=== PATIENT | male | born 1965 | race Caucasian/White ===

== ENCOUNTER 2024-10-28 01:15 | Inpatient (IN) | payer OTHER, SELFPAY ==
[2024-10-27 20:22] VITALS: BP 153/104
[2024-10-27 20:38] LABS: % Basophils 0.3 % (0-2); % Eosinophils 0.2 % (0-6); % Immature Granulocytes 0.8 % (0-0.5); % Lymphocytes 6.5 % (20.5-51.1); % Neutrophils 82.2 % (42.2-75.2); Absolute Basophils 0.1 10^3/uL (0-0.2); Absolute Immature Granulocytes 0.2 10^3/uL (0-0.05); Absolute Lymphocytes 1.2 10^3/uL (1.2-3.4); Absolute Monocytes 1.9 10^3/uL (0.1-0.6); Absolute Neutrophils 15.5 10^3/uL (1.4-6.5); Hematocrit 32.2 % (39.0-52.0); Hemoglobin 11.4 g/dL (13.0-18.0); Mean Corp Hgb Conc. 35.4 g/dL (33.0-37.0); Mean Corpuscular Hgb 33.9 pg (27.0-31.0); Mean Corpuscular Volume 95.8 fL (80.0-94.0); Mean Platelet Volume 9.7 fL (7.4-10.4); Nucleated Red Blood Cells % 0 % (-); Platelet Count 333 10^3/uL (130-400); Red Blood Cell Count 3.36 10^6/uL (4.70-6.10); Red Cell Dist. Width 14.5 % (11.5-14.5); White Blood Cell Count 18.9 10^3/uL (4.8-10.8)
[2024-10-27 20:59] LABS: NT-proBNP 138 pg/ml
[2024-10-27 21:04] LABS: ALT (SGPT) 173 U/L (0-50); AST (SGOT) 688 U/L (17-59); Albumin 3.7 g/dl (3.5-5.0); Alkaline Phosphatase 877 U/L (38-126); Blood Urea Nitrogen 20 mg/dl (9-20); Calcium 9.4 mg/dl (8.4-10.2); Carbon Dioxide 25 mmol/L (22-30); Chloride 99 mmol/L (98-107); Glucose 130 mg/dl (70-99); Lipase 93 U/L (23-300); Potassium 3.9 mmol/L (3.5-5.1); Sodium 135 mmol/L (135-145); Total Bilirubin 5.8 mg/dl (0.2-1.3); Total Protein 6.9 g/dl (6.3-8.2); eGFR > 60.00
--- NOTE | 2024-10-27 21:56 | ED.GENMED ---
History of Present Illness
General
Chief Complaint: Abdominal Pain
Source: patient
Exam Limitations: none
Time Seen by Provider: 10/27/24 21:44
History of Present Illness
History of Present Illness:
This is a 59 year old male that comes in with c/o constipation. States that he went to and was told that he has an obstruction. States that he hasn't really moved his bowel well in the past 2 weeks. States that he has had some diarrhea but not
much. Stats that his abd is distended. States that he also started a week ago with bilateral leg swelling. Denies any fever, chills, chest pain, SOB, abd pain, nausea, vomiting, headache, dizziness, urinary burning.
Past History
Past History
ED Past Medical History: None; Negative Asthma, HTN, Hypercholesterolemia or NIDDM
ED Past Surgical History: None
Social History
Tobacco: Smoker
Alcohol: Daily (Beer 3)
Personal: Single
Living: alone
Review of Systems
Review of Systems
All Other Systems: ROS reviewed and negative except as documented in HPI and ROS
Constitutional: Reports no symptoms; Denies fever or chills
EENT: Reports no symptoms
Respiratory: Reports no symptoms; Denies cough or trouble breathing
Cardiac: Reports no symptoms; Denies chest pain
ABD/GI: Reports constipated and other (abd distension)
: Denies dysuria, frequency or urgency
Musculoskeletal: Reports no symptoms
Skin: Reports no symptoms
Neurological: Reports no symptoms; Denies dizzy or headache
Psychiatric: Reports no symptoms
Phy Exam
General Physical Exam
General Presentation: no apparent distress
General age: appears stated age
General Skin: warm, dry and other (jaundice)
General Habitus: normal
General Mental: alert
General Hydration: appears well hydrated
ENT Exam
ENT Exam: TM's normal, pharynx normal and neck supple
Eye Exam
Eye Exam: EOMI and other (sclera slightly jaundice)
Cardiovascular Exam
Cardiovascular Exam: regular rate/rhythm and normal peripheral pulses
Pulmonary Exam
Pulmonary Exam: lungs clear, no respiratory distress, no rales, chest non tender, no crackles, no rhonchi, no wheezing and no cough
Gastrointestinal Exam
Gastrointestinal Exam: soft, no pulsatile mass, ascites and other (large palpable mass in the RUQ hard to tough, Hypoactive bowel sounds)
Musculoskeletal Exam
Musculoskeletal Exam: full ROM and edema (Pitting edema of the legs up into the thighs +2 lower leg and +1 thighs )
Skin Exam
Skin Exam: warm/dry, no petechia and jaundice
Psychiatric Exam
Psychiatric Exam: normal mood/affect
Course
Orders/Labs/Results
Orders:
Orders
10/27/24 20:32
BNP [NT-proBNP] Urgent
Complete Blood Count/With Diff Urgent
Comprehensive Metabolic Panel Urgent
Direct Bilirubin Urgent
Comment: ADD ON
Lipase Urgent
10/27/24 21:55
CT Abd/pelvis W Iv Cont Urgent
Comment:
Reason For Exam: rIGHT UPPER ABD MASS, jAUNDICE
10/27/24 21:56
0.9% Sodium Chloride 250 ml [Nss] 250 ml IV BOLUS
10/27/24 22:03
Add On- LAB Urgent
Tests Added?: Direct clifton
10/27/24 22:32
Lactic Acid Urgent
PTT Urgent
Prothrombin Time Urgent
Abnormal Lab Results
10/27/24 10/27/24
20:32 22:32
WBC 18.9 H 10^3/uL
(4.8-10.8)
RBC 3.36 L 10^6/uL
(4.70-6.10)
Hgb 11.4 L g/dL
(13.0-18.0)
Hct 32.2 L %
(39.0-52.0)
MCV 95.8 H fL
(80.0-94.0)
MCH 33.9 H pg
(27.0-31.0)
Abs Immat Gran (auto) 0.2 H 10^3/uL
(0-0.05)
Absolute Neuts (auto) 15.5 H 10^3/uL
(1.4-6.5)
Absolute Monos (auto) 1.9 H 10^3/uL
(0.1-0.6)
Immature Gran % 0.8 H %
(0-0.5)
Neutrophils % 82.2 H %
(42.2-75.2)
Lymphocytes % 6.5 L %
(20.5-51.1)
Monocytes % 10.0 H %
(1.7-9.3)
Glucose 130 H mg/dl
(70-99)
Lactic Acid 2.1 H mmol/L
(0.7-2.0)
Total Bilirubin 5.8 H mg/dl
(0.2-1.3)
Direct Bilirubin 4.5 H mg/dl
(0.0-0.4)
AST 688 H* U/L
(17-59)
ALT 173 H U/L
(0-50)
Alkaline Phosphatase 877 H U/L
(38-126)
10/27/24 20:32
10/27/24 20:32
Leukocytosis, H/H slightly low. Anemia, hyperglycemia. Total clifton elevation. AST/ALT elevation. Alk phos elevation lipase normal at 93, Pro-BNP 138, Direct clifton elevated at 4.5, PT 14.3 with INR 1.08, PTT 28.0, Lactic acid 2.1,
Vital Signs
Initial and Last Documented VS:
Initial Vital Signs
Temp Pulse Resp BP Pulse Ox
98.5 F 123 18 153/104 98
10/27/24 20:22 10/27/24 20:22 10/27/24 20:22 10/27/24 20:22 10/27/24 20:22
Last Documented Vital Signs
Temp Pulse Resp BP Pulse Ox
98.5 F 123 18 153/104 98
10/27/24 20:22 10/27/24 20:22 10/27/24 20:22 10/27/24 20:22 10/27/24 20:22
MDM/Problems Addressed
Differential Diagnosis Includes:
cancer of the liver, gallbladder disease
MDM/Problems Addressed:
This is a 59 year old male that comes in with c/o constipation. States that he hasn't really moved his bowel in 2-3 weeks but only some liquid. States that his abd is distended. Patient went to and was sent to the ER
Will check labs, CT scan ab/pelvis, Explained to patient that his liver functions are abnormal. Patient will be admitted. Will get CT first.
Back into see patient. Explained that his CT shows that he has liver cancer with metastasis into the pelvis and involving the rectum. Patient will be admitted for further evaluation. Hospitalist notified.
Chronic conditions affecting care:
NA
Acute Exacerbation and/or Progression of Chronic Illness:
NA
*Radiology
Radiology exam reviewed: radiology read reviewed (CT- extensive metastases throughout the liver. Moderate intrahepatic biliary ductal dilation. Tumor thrombus versus band thrombus within the intrahepatic IVC. Metastatic necrotic estela conglomerate
seen interspersed between the liver and pancreas. Pelvic mass measuring 5,5 x 5,4cm, most likely ), all reviewed NAD by ED Provider (CT cont-represending a peritoneal metastasis, with serosal invasion of the adjacent rectum. A 2.7 X 1.9cm right
epipericardial metastasis is also seen. Mural thickening of the bladder, suspicious for cystitis. Mild anasarca. Trace scattered ascites. Additional findings: Dependent atelectasis in the) and other (CT cont-tight lower lobe, DJD, DISH. vascular
Calcifications including coronary artery calcification. DJD, Probable left renal cystic focus. )
*Pulse Oximetry
Patient hypoxic: no
*EKG
Interpreted by ED Provider?: NA
Rate: EKG- N/A
*Shape Hand Interpretation
Rate: Shape Hand- N/A
*Critical Care Note
Total Time (30-74mins, 75-104mins- exclusive of procedures): Not Applicable
ED Attending Note
-
Portions of this chart may have been created with voice recognition software.� Occasional wrong word or��sound alike� substitutions may have occurred due to the inherent limitations of voice recognition software.
Discharge Plan
Departure
Patient Disposition: Admit
Date of Disposition: 10/27/24
Time of Disposition: 23:45
Admit to: Med/Surg
Presentation/result/management discussed w/ accepting MD/DO: Hospitalist
Patient with high blood pressure during this ER visit?: Yes
Condition: Good
Covid-19: Not Applicable
Discharge Problem:
Jaundice, Elevated liver enzymes, Bilateral edema of lower extremity, Metastatic cancer to liver
Prescriptions:
No Action
acetaminophen [Tylenol Extra Strength] 500 mg Tablet
500 mg PO Q6HPRN PRN (Reason: mild pain)
ibuprofen 200 mg Tablet
200 mg PO Q6HPRN PRN (Reason: mild pain)
Referrals:
NONE,* [Family Provider] -
Interventions
Interventions:
*Risk Screen - Suicide Last Done: 10/27/24 20:22
*General Assessment Last Done: 10/27/24 20:22
*Neglect/Abuse Screening Last Done: 10/27/24 20:22
*ED COVID-19 Vaccine History Last Done: 10/27/24 20:22
Discharge Date and Time
Print Language: PASHTO
[2024-10-27 22:35] VITALS: BP 155/72
[2024-10-27] MEDS: NSS 250 IV (22:38)
[2024-10-27 22:49] LABS: INR 1.08; PT 14.3 Sec (11.4-14.6)
[2024-10-27 22:50] LABS: Direct Bilirubin 4.5 mg/dl (0.0-0.4)
[2024-10-27 22:55] LABS: Lactic Acid 2.1 mmol/L (0.7-2.0)
[2024-10-28 00:01] VITALS: BP 139/80
[2024-10-28 00:02] VITALS: BMI 29.2
--- NOTE | 2024-10-28 00:45 | HPS.HSE ---
Family Physician
-
Family Physician: * NONE
Chief Complaint
-
Abdominal bloating
History of Present Illness
This is a 59-year-old who denies any significant past medical history presenting to the emergency department with concern for abdominal bloating.
Patient reports that for a few weeks now he has been having abdominal bloating and some constipation. He does have regular bowel movements and passes gas. Reports bowel movements are small. He denies jose pain. He denies any nausea or vomiting.
Denies any fevers or chills. He denies back pain, flank pain, dysuria or hematuria. Otherwise sore icteric sclera the patient denies any noticeable changes in his eyes or skin. He does drink alcohol daily about 3 beers. He denies any prior
history of blood transfusion, IV injection drug use or known hepatitis.
Family history notable for throat cancer in mother who was a smoker but otherwise negative.
In the emergency department he was afebrile blood pressure 130/80 with a pulse of 120, oxygen saturation was normal on room air.
His labs are notable for total bilirubin of 5.8 with direct bilirubin of 4.5, AST of 688 ALT 170 and alk phos of over 800. Electrolytes were unremarkable, BUN/creatinine were normal. He had leukocytosis to 18,000 with rest of the CBC unremarkable.
A CT scan of the abdomen pelvis shows extensive metastasis throughout the liver, moderate intrahepatic biliary ductal dilation, there is tumor or bland thrombus within the intrahepatic IVC. Metastatic nodes seen in the space between the liver and
pancreas. There is a pelvic mass of about 5.5 cm representing peritoneal metastasis, there is also a 2.7 x 2 epicardial metastasis. There is trace scattered ascites and mild anasarca.
Medical History
Past Medical History
Past Medical History: Reports None
Past Surgical History: Reports None
Social History
Tobacco: Former Smoker
Alcohol: Daily (3 beers)
Drug: None
Personal: Single
Living: Alone
Employment: Employed
Family History
Family History: Not pertinent
Allergies / Home Medications
Allergies reflects when Allergies were last updated in [facility].
Home Medications with original date entered in [facility]
Allergy/Medication List:
Allergies
Allergy/AdvReac Type Severity Reaction Status Date / Time
No Known Allergies Allergy Unverified 10/27/24 20:24
Home Medications
acetaminophen 500 mg tablet (Tylenol Extra Strength) 500 mg PO Q6HPRN PRN mild pain 10/27/24
ibuprofen 200 mg tablet 200 mg PO Q6HPRN PRN mild pain 10/27/24
Review of Systems
-
History Source: Patient
Constitutional: Reports No Symptoms
EENT: Reports No Symptoms
Respiratory: Reports No Symptoms
Cardiac: Reports No Symptoms
Abdomen/GI: Reports Abdominal Pain
: Reports No Symptoms
Musculoskeletal: Reports No Symptoms
Skin: Reports No Symptoms
Neurological: Reports No Symptoms
Endocrine: Reports No Symptoms
Hematologic/Lymphatic: Reports No Symptoms
Psych: Reports No Symptoms
Physical Exam
Vital Signs
Vital Signs
Temp Pulse Resp BP Pulse Ox
98.5 F 123 18 139/80 98
10/27/24 20:22 10/27/24 20:22 10/27/24 20:22 10/28/24 00:01 10/28/24 00:04
Physical Exam
General: Well Developed, Well Nourished, No Apparent Distress and Comfortable
HEENT: NormoCephalic, Moist mucous membranes, Atraumatic and PERRLA (icteric sclera)
Respiratory: Clear
Cardiac: S1/S2 and Regular Rhythm
Breast: Deferred by me
GI: Non Tender and Non Distended (firm)
Rectal: Deferred by Provider
Genito-urinary: Deferred by me
Musculoskeletal: No Clubbing, No Cyanosis, Edema, Left Lower Extremity (2+) and Edema, Right Lower Extremity (2+ edema)
Skin: Warm and Other (jaundice)
Neuro: AO x 3 and Nonfocal/grossly intact
Hematologic/Lymphatic: No Lymphadenopathy
Psych: Calm and Intact Judgment/Insight
Laboratory Results
-
10/27/24 20:32
10/27/24 20:32
Laboratory Results
PT 14.3 Sec (11.4-14.6) 10/27/24:32
INR 1.08 10/27/24:32
APTT 28.0 Sec (23.4-35.0) 10/27/24:
Lactic Acid 2.1 mmol/L (0.7-2.0) H 10/27/24:
Total Bilirubin 5.8 mg/dl (0.2-1.3) H 10/27/24:
AST 688 U/L (17-59) H* 10/27/24:
ALT 173 U/L (0-50) H 10/27/24 20:32
Alkaline Phosphatase 877 U/L (38-126) H 10/27/24 20:
Lipase 93 U/L (23-300) 10/27/24 20:32
Data Reviewed
-
CT Scan: Report Reviewed by me
Lab Data: Labs Reviewed by me
Old Records: Reviewed
Impression/Plan
-
IMPRESSION:
This is a 59-year-old with no significant past medical history presented with abdominal bloating and found to have elevated LFTs and bilirubin. Ultimately had a CT of the abdomen pelvis which showed numerous liver lesions concerning for primary
liver malignancy or metastatic disease. There is mets to the regional lymph nodes as well as peritoneal cavity. Moderate intrahepatic ductal dilatation. No intestinal obstruction.
PLAN:
1. Liver Mass with metastatic disease - Primary versus metastic liver cancer. Jaundice and anasarca but otherwise well appearing.
- admit to med/surg
- liquid diet for now
- check afp, ca19-9 and cea
- further distant imaging per Onc
- possible MRI in am for diagnostic purposes
- GI consult
- Oncology consult
2. 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 No ascites. Likely LE edema secondary to the thrombus.
- check clifton LE dopplers
- if bland thrombus, given degree of edema that is secondary to thrombus will likely need anticoagulation rather than diuresis
- Oncology consulted, holding ac pending their review
3. Bilateral swelling
- suspect from ivc obstruction, dopplers as above
- no ascites, bnp negative
4. Leukocytosis
- no signs of acute infection or pain
- monitor for now
DVT PPX - lovenox sq for now
Code status - full code
[2024-10-28 02:19] VITALS: BP 138/82
[2024-10-28 06:47] LABS: Hematocrit 30.6 % (39.0-52.0); Hemoglobin 10.5 g/dL (13.0-18.0); Mean Corp Hgb Conc. 34.3 g/dL (33.0-37.0); Mean Corpuscular Hgb 33.4 pg (27.0-31.0); Mean Corpuscular Volume 97.5 fL (80.0-94.0); Mean Platelet Volume 10.3 fL (7.4-10.4); Platelet Count 320 10^3/uL (130-400); Red Blood Cell Count 3.14 10^6/uL (4.70-6.10); Red Cell Dist. Width 14.6 % (11.5-14.5); White Blood Cell Count 16.7 10^3/uL (4.8-10.8)
[2024-10-28 07:00] LABS: Ammonia < 9 umol/L (9-30)
[2024-10-28 07:12] LABS: Blood Urea Nitrogen 22 mg/dl (9-20); Calcium 9.3 mg/dl (8.4-10.2); Carbon Dioxide 27 mmol/L (22-30); Chloride 99 mmol/L (98-107); Estimated Creatinine Clearance 109 ml/min; Glucose 121 mg/dl (70-99); Potassium 4.1 mmol/L (3.5-5.1); Sodium 134 mmol/L (135-145); eGFR > 60.00
--- NOTE | 2024-10-28 07:37 | CON.ONC ---
Impression
Impression
Widespread metastatic disease (liver, peritoneum)
Jaundice
Plan
Plan
Suspect metastatic dz from probable GI malignancy - suspect colon.
GI consult. Prob needs colonoscopy based on symptoms and suspected primary site.
Await CEA, CA 19/9.
CT chest to elevate for thoracic primary (smoker).
IR biopsy probably of liver mets. Will defer to IR.
Office aware he needs follow up ~ 1 week to review path and discuss Tx.
Good PS.
Patient History
History of Present Illness
Family Physician: * NONE
CC: /\\ in bowel habits
HPI: 59-year-old w/o any known PMH, does not follow with a PCP. Never gets cancer screening presents with a /\\ in bowel habits since Day weekend worse the past 2 weeks. He states he is here because his bowels are 'backed up' with abdominal
bloating and constipation. Initially he noticed a change in bowel movement frequency. Prior baseline was a daily normal BM. Over the past 3-4 months, noticed bowels thinner and even liquid, less frequently than daily, occasional blood noted past
month. Now, for the past 2 weeks, he has been having abdominal bloating and constipation. Denies abdominal pain, nausea or vomiting, fevers or chills. Noted to be jaundiced with bilirubin of 5.8. A CT scan of the abdomen pelvis shows (prelim
nighthawk reading) extensive metastasis throughout the liver, moderate intrahepatic biliary ductal dilation, there is tumor or bland thrombus within the intrahepatic IVC. Metastatic nodes seen in the space between the liver and pancreas. There is
a pelvic mass of about 5.5 cm representing peritoneal metastasis, there is also a 2.7 x 2 epicardial metastasis.
Consulted for further management. GI consulted also and is pending.
Past-Medical/Surgical History
PMH: None
PSH: None
SH:
Tobacco: Light Smoker 2-3 cigs/day
Alcohol: Daily (3 beers)
Drug: None
Personal: Single
Living: Alone
Employment: Employed - works for [employer])
FH: throat cancer in mother who was a smoker Dx age 60's. She is cured and alive age 90
Patient Medication
�Medication �Instructions �Recorded �Confirmed �Last Taken �Type
acetaminophen 500 mg tablet 500 mg PO Q6HPRN PRN mild pain 10/27/24 10/27/24 Unknown History
(Tylenol Extra Strength)
ibuprofen 200 mg tablet 200 mg PO Q6HPRN PRN mild pain 10/27/24 10/27/24 Unknown History
Active Medications
Generic Name Dose Route Start Last Admin
Trade Name Freq PRN Reason Stop Dose Admin
Acetaminophen 650 mg 10/28/24 02:33
Acetaminophen 325 Mg Tablet PO 11/25/24 02:32
Q4HPRN PRN
mild pain/MALONE/temp> 100.4F
Bisacodyl 10 mg 10/28/24 02:33
Bisacodyl 10 Mg Rectal Suppository RECTAL 11/25/24 02:32
[id number] PRN
constipation
Enoxaparin Sodium 40 mg 10/28/24 18:00
Enoxaparin Sodium 40 Mg/0.4 Ml Syringe SC 11/25/24 17:59
QPM AZUL
Hydromorphone HCl 0.5 mg 10/28/24 02:33
Hydromorphone 0.5 Mg/0.5 Ml Syringe IV 11/11/24 02:32
Q4HPRN PRN
severe pain
Ondansetron HCl 4 mg 10/28/24 02:33
Ondansetron 4 Mg/2 Ml Vial IV 11/25/24 02:32
Q6HPRN PRN
nausea and vomiting
Oxycodone HCl 5 mg 10/28/24 02:33
Oxycodone 5 Mg Regular Release Tablet PO 11/11/24 02:32
Q4HPRN PRN
moderate pain
Polyethylene Glycol 17 grams 10/28/24 02:33
Polyethylene Glycol Powder 17 Grams Packet PO 11/25/24 02:32
DAILYPRN PRN
constipation
Senna/Docusate Sodium 1 tablet 10/28/24 02:33
Docusate W/Senna (Doris-Colace) Tablet PO 11/25/24 02:32
BIDPRN PRN
constipation
Sodium Chloride 0 flush 10/28/24 03:00
Sodium Chloride 0.9% (Flush) Syringe IV 11/25/24 02:59
PER PROTOCOL AZUL
Physical Exam
-
PS - 1
General: Well Developed, Well Nourished, No Apparent Distress and Comfortable
HEENT: Jaundice
Cardiology: S1 and S2
Pulmonary: Clear
GI: Soft, Distended and Hepatomegaly
Extremities: Edema (1-2+ LE edema B/L)
Neurology: Non Focal
Psych: Calm
Labs
Lab Results
WBC 16.7 10^3/uL (4.8-10.8) H 10/28/24 06:19
RBC 3.14 10^6/uL (4.70-6.10) L 10/28/24 06:19
Hgb 10.5 g/dL (13.0-18.0) L 10/28/24 06:19
Hct 30.6 % (39.0-52.0) L 10/28/24 06:19
MCV 97.5 fL (80.0-94.0) H 10/28/24 06:19
MCH 33.4 pg (27.0-31.0) H 10/28/24 06:19
MCHC 34.3 g/dL (33.0-37.0) 10/28/24 06:19
RDW 14.6 % (11.5-14.5) H 10/28/24 06:19
Plt Count 320 10^3/uL (130-400) 10/28/24 06:19
MPV 10.3 fL (7.4-10.4) 10/28/24 06:19
Abs Immat Gran (auto) 0.2 10^3/uL (0-0.05) H 10/27/24 20:32
Absolute Neuts (auto) 15.5 10^3/uL (1.4-6.5) H 10/27/24 20:32
Absolute Lymphs (auto) 1.2 10^3/uL (1.2-3.4) 10/27/24 20:32
Absolute Monos (auto) 1.9 10^3/uL (0.1-0.6) H 10/27/24 20:32
Absolute Eos (auto) 0.0 10^3/uL (0-0.7) 10/27/24 20:32
Absolute Basos (auto) 0.1 10^3/uL (0-0.2) 10/27/24 20:32
Immature Gran % 0.8 % (0-0.5) H 10/27/24 20:32
Neutrophils % 82.2 % (42.2-75.2) H 10/27/24 20:32
Lymphocytes % 6.5 % (20.5-51.1) L 10/27/24 20:32
Monocytes % 10.0 % (1.7-9.3) H 10/27/24 20:32
Eosinophils % 0.2 % (0-6) 10/27/24 20:32
Basophils % 0.3 % (0-2) 10/27/24 20:32
Creatinine 0.7 mg/dL (0.7-1.3) 10/28/24 06:19
Vital Signs
Vital Signs
Temp Pulse Resp BP Pulse Ox
98.5 F 77 18 138/82 97
10/27/24 20:22 10/28/24 02:22 10/27/24 20:22 10/28/24 02:19 10/28/24 04:15
[2024-10-28 08:22] LABS: CEA 1380 ng/ml
[2024-10-28 09:01] VITALS: BP 143/85
--- NOTE | 2024-10-28 10:04 | CON.GI ---
Addendum entered and electronically signed by Isabelle Padilla MD 10/28/24 18:18:
I saw and examined the patient.
The COMMUNITY OUTREACH COORDINATOR or PA's note was reviewed and I agree with the note.
Comment: 59-year-old male with no known past medical history as he never sought medical care presenting with complaints of increasing constipation which got severe in the last couple of weeks, abdominal distention and lower extremity edema. No
nausea, vomiting, heartburn or trouble swallowing. Never had a colonoscopy. In the emergency room, he was noted to have leukocytosis with white count of 16.7, macrocytic anemia with a hemoglobin of 10.5, CT scan of the abdomen pelvis showing
extensive metastatic disease throughout the liver and filling defect in the intravenous IVC suggesting a thrombus, most likely tumor thrombus and also noted is a mass within the pelvis superior to the rectosigmoid junction, either a primary lesion
or a peritoneal metastatic lesion. CT chest showed enlarged pericardial lymph adenopathy suggesting possible neoplastic disease.
-Abnormal CT with tumor burden in the liver and also possible rectosigmoid lesion, primary versus peritoneal metastatic disease
Plan at this time is IR guided biopsy of the liver lesions
Eventual colonoscopy to evaluate the rectosigmoid lesion, will need extended prep. Will start MiraLAX 1 capful daily.
-Elevated LFTs, mainly total bilirubin with AST, ALT and alkaline phosphatase being elevated as well.
Likely related to tumor burden as well.
There is no evidence of biliary ductal dilation noted on CT abdomen pelvis but if LFTs continue to rise, agree with MRI/MRCP at that time.
Will follow-up on the above testing.
Original Note:
Consultation
-
Date/Time Consultation Requested: 10/28/24 0230
Date/Time Consultation Performed: 10/28/24 1000
Requesting Provider: Lan Enamorado MD
Performing Provider: SARA Yang, Isabelle Padilla MD
Reason for Consultation: abnormal CT
Medical History
Chief Complaint / HPI
Chief Complaint: abdominal bloating
History of Present Illness:
Pt is a 59yo without medical problems but admits to no medical care in years. He now is noted onset of bloating and constipation with symptoms for last few months. He admits to initially had change in bowel habit with occasional rectal bleeding
then some bloating/distention and recently noted LE edema. On admission extensive metastatic liver disease with concern for tumor thrombus within intrahepatic IVC, periportal lymphadenopathy, concern for mass superior to rectosigmoid junction-
peritoneal mets vs neoplasm from colon without obstruction or free air and bladder thickening. Labs on admission with concern for WBC 18,900, hbg 11.4, platelets 333, na 134, bili 5.8, D bili 4.5, AST 688, alt 173, alk phos 877. CEA 1380 with AFP
and 19-9 pending.
Pt otherwise denies odynophagia, dysphagia, GERD, nausea, vomiting, or black stools. No chronic med but some daily vitamins. No hx EGD/colon in past.
Past Medical History
Past Medical History: Other (no known medical problems without medical care for years )
Social History
Tobacco: Non-Smoker
Alcohol: Daily (2-3 beers )
Drug: None
Living: With Family
Employment: Employed
Family History
Family History: Other (mother with throat CA)
Allergies / Home Medications
Allergy/AdvReac Type Severity Reaction Status Date / Time
No Known Allergies Allergy Unverified 10/27/24 20:24
�Medication �Instructions �Recorded
acetaminophen 500 mg tablet 500 mg PO Q6HPRN PRN mild pain 10/27/24
(Tylenol Extra Strength)
ibuprofen 200 mg tablet 200 mg PO Q6HPRN PRN mild pain 10/27/24
Review of Systems
-
History Source: Patient
Constitutional: Reports Weight Gain
EENT: Reports No Symptoms
Respiratory: Reports No Symptoms
Cardiac: Reports No Symptoms
Abdomen/GI: Reports Abdominal Pain (bloating ), Constipated and Bloody Stools
: Reports No Symptoms
Musculoskeletal: Reports Edema
Skin: Reports No Symptoms
Neurological: Reports Weakness
Endocrine: Reports No Symptoms
Hematologic/Lymphatic: Reports Bleeding
Vital Signs
Temp Pulse Resp BP Pulse Ox
98.7 F 99 18 143/85 97
10/28/24 09:01 10/28/24 09:01 10/28/24 09:01 10/28/24 09:01 10/28/24 09:01
Physical Exam
Exam
General: Well Developed, Well Nourished and No Apparent Distress
HEENT: Normocephalic and Other (jaundice )
Respiratory: Clear
Cardiac: Regular Rhythm and Peripheral Edema (b/l + 3 edema )
GI: Soft, Distended and Other (palpable tumor RUQ)
Musculoskeletal: No Clubbing and No Cyanosis
Skin: Warm and Dry
Neuro: Awake, Alert and AO x 3
Psych: Calm
Results
WBC 16.7 10^3/uL (4.8-10.8) H 10/28/24 06:19
Hgb 10.5 g/dL (13.0-18.0) L 10/28/24 06:19
Hct 30.6 % (39.0-52.0) L 10/28/24 06:19
MCV 97.5 fL (80.0-94.0) H 10/28/24 06:19
Plt Count 320 10^3/uL (130-400) 10/28/24 06:19
Absolute Neuts (auto) 15.5 10^3/uL (1.4-6.5) H 10/27/24 20:32
PT 14.3 Sec (11.4-14.6) 10/27/24 22:32
INR 1.08 10/27/24 22:32
APTT 28.0 Sec (23.4-35.0) 10/27/24 22:32
Sodium 134 mmol/L (135-145) L 10/28/24 06:19
Potassium 4.1 mmol/L (3.5-5.1) 10/28/24 06:19
Chloride 99 mmol/L (98-107) 10/28/24 06:19
Carbon Dioxide 27 mmol/L (22-30) 10/28/24 06:19
BUN 22 mg/dl (9-20) H 10/28/24 06:19
Creatinine 0.7 mg/dL (0.7-1.3) 10/28/24 06:19
Calcium 9.3 mg/dl (8.4-10.2) 10/28/24 06:19
Total Bilirubin 5.8 mg/dl (0.2-1.3) H 10/27/24 20:32
AST 688 U/L (17-59) H* 10/27/24 20:32
ALT 173 U/L (0-50) H 10/27/24 20:32
Alkaline Phosphatase 877 U/L (38-126) H 10/27/24 20:32
Lipase 93 U/L (23-300) 10/27/24 20:32
Diagnostic Image Results:
10/27/24 CT Abd/pelvis W Iv Cont
Extensive metastatic disease throughout the liver. Filling defect within the intrahepatic IVC, which is likely thrombus, most likely tumor thrombus.
Periportal lymphadenopathy.
There is a mass within the pelvis, superior to the rectosigmoid junction. This most likely represents a peritoneal metastasis. Differential consideration of primary neoplasm arising from the colon extending superiorly colonic lumen. There is no
evidence for bowel obstruction or free intraperitoneal air.
Diffuse subcutaneous edema.
Thickening of the urinary bladder wall with stranding of the adjacent fat, and please correlate with any signs or symptoms that would suggest cystitis. There is a small amount of free fluid within the pelvis.
See above narrative for additional findings.
10/28/24 US LE
No sonographic evidence for lower extremity venous thrombosis.
Prior GI Procedures:
EGD: none
Colonoscopy: none
Assessment / Plan
-
Pt is a 59yo without medical problems but admits to no medical care in years. He now is noted onset of bloating and constipation with symptoms for last few months. He admits to initially had change in bowel habit with occasional rectal bleeding
then some bloating/distention and recently noted LE edema. On admission extensive metastatic liver disease with concern for tumor thrombus within intrahepatic IVC, periportal lymphadenopathy, concern for mass superior to rectosigmoid junction-
peritoneal mets vs neoplasm from colon without obstruction or free air and bladder thickening. Labs on admission with concern for WBC 18,900, hbg 11.4, platelets 333, na 134, bili 5.8, D bili 4.5, AST 688, alt 173, alk phos 877. CEA 1380 with AFP
and 19-9 pending.
-abnormal CT with concern for metastatic CA with noted liver lesions, rectosigmoid mass mets vs primary colon mass
-likely thrombus with extensive filling defect within intrahepatic IVC
-elevated CEA 1380
-leukocytosis
-LE edema with neg US doppler
-abdominal distention with recent change in bowel pattern and occasional rectal bleeding
-daily ETOH use
PLAN:
Etiology of symptoms with concern for metastatic CA -- primary to be determined - colon, liver vs other
plan for liver biopsy and CT chest next
reviewed with Dr. Pardo appreciate input, will likely need colonoscopy to exclude colon mass- may need prolonged prep with recent bloating, constipation
LFT elevation -related to mets vs obstructive, thrombus related vs other-- per CT CBD does not appear dilated but some intrahepatic biliary dilation
-- will review with Dr. Padilla need for MRI to eval for obstructive process if continued to rise
INR/platelet/albumin normal likely excludes underlying liver disease with hx daily ETOH use
will follow
-
-
Thank you for consultation and allowing me to participate in the patient's care. Please call the nutrition coordinator GI physician during the after hours with any questions or concerns.
--- NOTE | 2024-10-28 15:37 | W.PN.HOSP.TC ---
Today's Communication/Plan
-
IR for liver biopsy
Plan to speak to IR about possible interventions for IVC
Plan for colonoscopy here
Follow-up CT chest
Follow-up tumor markers
Assessment / Plan
Assessment / Plan
#Liver mass
#Metastatic cancer of unclear origin
#Elevated LFTs with jaundice -- AST/ALT > 3
-Differentials include primary liver, colorectal, lung, elsewhere; CEA elevated to 1400
-Significantly elevated LFTs in cholestatic > hepatocellular pattern
-CT A/P with significant liver mass the origin of which is unclear
-No known history of HBV/cirrhosis; AFP, CA 19-9, send on arrival
-GI and oncology consulted; recommend possible colonoscopy, CT chest
Plan
-IR consult for liver biopsy
-Follow-up serological markers
-Follow-up CT chest to assess for lung masses
-Plan for colonoscopy while here
-Avoid hepatotoxins, trend LFTs
#IVC obstruction
#Bilateral lower extremity edema
-Seen on CT A/P, suspect this is tumor >thrombus causing the obstruction
-Plan to speak to IR about possible intervention
-Oncology following, as is interventional radiology
-Would not expect this to significantly improve with diuretics
#Irregular heart rhythm
-Noted per exam, difficult to differentiate PVCs from AF/AFL
-Does have significant systemic disease, would not be surprised if this is AF
-Ordered ECG to further assess
-May require rate control on anticoagulation
#Leukocytosis
-Likely reactive process secondary to IVC obstruction and metastatic
-Continue to trend CBC and temperature curve
DVT prophylaxis: Lovenox
Diet: Full liquids
CODE STATUS: Full code
Anticipated Discharge: > 48 hours
Subjective/Interval History
-
Date of Service: October 28, 2024
Seen and examined at the bedside. No acute events reported overnight. AFVSS as of this morning
States his symptoms started while ago with intermittent constipation that worsened with time. Progressed to near obstipation. Subsequently developed yellow skin and edema in the legs which prompted him to come to the hospital. States he has not
seen a doctor in over 20 years
Denies any acute complaints
Objective Data
-
Labs:
Laboratory Results
10/28/24
06:19
WBC 16.7 H
Hgb 10.5 L
Hct 30.6 L
Plt Count 320
Sodium 134 L
Potassium 4.1
Chloride 99
Carbon Dioxide 27
BUN 22 H
Creatinine 0.7
Glucose 121 H
Calcium 9.3
Vital Signs:
Vital Signs
Temp Pulse Resp BP Pulse Ox
98.7 F 99 18 143/85 97
10/28/24 09:01 10/28/24 09:01 10/28/24 09:01 10/28/24 09:01 10/28/24 09:01
Review of Systems
-
History Source: Patient
All other systems: Reviewed and negative
Physical Exam
-
General: Well Developed, Well Nourished, No Apparent Distress and Comfortable
HEENT: Normocephalic, Atraumatic, Moist Mucous Membranes and Other (Icteric sclera)
Respiratory: Clear to Auscultation and Non Labored Respirations
Cardiac: S1/S2 and Irregular Rhythm; Negative Murmur, Rub or Gallop
GI: Soft, Nontender, Nondistended, Normal Bowel Sounds and Organomegaly (RUQ)
Musculoskeletal: No Clubbing, No Cyanosis and Other (3+ pitting edema of lower extremity)
Skin: Warm, Dry and Jaundice; Negative Rash
Neuro: AO x 3 and Nonfocal/Grossly Intact; Negative Tremors
Psych: Calm
Data Reviewed
-
Labs: Labs Reviewed by me, Discussed with Physician (Oncology) and Discussed with Patient
[2024-10-28 16:40] VITALS: BP 132/84
[2024-10-28] MEDS: LOVENOX 40 MG SC (17:53)
--- NOTE | 2024-10-28 21:28 | PTCARENOTE ---
Pt received from ED to [facility]-2. Pt oriented to room and call campbell.
[2024-10-28 21:40] VITALS: BP 159/93; BMI 30.2
[2024-10-29] VITALS (9 sets, daily range): BP systolic 25–152; BP diastolic 75–91; BMI 30.2
[2024-10-29 09:12] LABS: % Basophils 0.2 % (0-2); % Eosinophils 0.4 % (0-6); % Lymphocytes 6.2 % (20.5-51.1); % Monocytes 11.8 % (1.7-9.3); % Neutrophils 80.4 % (42.2-75.2); Absolute Eosinophils 0.1 10^3/uL (0-0.7); Absolute Immature Granulocytes 0.1 10^3/uL (0-0.05); Absolute Lymphocytes 0.8 10^3/uL (1.2-3.4); Absolute Monocytes 1.6 10^3/uL (0.1-0.6); Absolute Neutrophils 10.7 10^3/uL (1.4-6.5); Hematocrit 29.5 % (39.0-52.0); Hemoglobin 10.3 g/dL (13.0-18.0); Mean Corp Hgb Conc. 34.9 g/dL (33.0-37.0); Mean Corpuscular Volume 94.6 fL (80.0-94.0); Mean Platelet Volume 10.5 fL (7.4-10.4); Nucleated Red Blood Cells % 0 % (-); Platelet Count 303 10^3/uL (130-400); Red Blood Cell Count 3.12 10^6/uL (4.70-6.10); Red Cell Dist. Width 15.3 % (11.5-14.5); White Blood Cell Count 13.3 10^3/uL (4.8-10.8)
[2024-10-29 09:20] LABS: INR 1.14; PT 15.1 Sec (11.4-14.6)
[2024-10-29 11:12] LABS: ALT (SGPT) 178 U/L (0-50); AST (SGOT) 737 U/L (17-59); Albumin 3.4 g/dl (3.5-5.0); Alkaline Phosphatase 785 U/L (38-126); Blood Urea Nitrogen 20 mg/dl (9-20); Calcium 8.8 mg/dl (8.4-10.2); Carbon Dioxide 26 mmol/L (22-30); Chloride 98 mmol/L (98-107); Direct Bilirubin 7.2 mg/dl (0.0-0.4); Estimated Creatinine Clearance > 125 ml/min; Glucose 109 mg/dl (70-99); Potassium 4.2 mmol/L (3.5-5.1); Sodium 134 mmol/L (135-145); Total Protein 6.4 g/dl (6.3-8.2); eGFR > 60.00
--- NOTE | 2024-10-29 11:42 | W.PN.ONC ---
Today's Communication / Plan
-
Suspect metastatic dz from probable GI malignancy - suspect colon.
Discussed case with GI sigmoidoscopy today
Await IR biopsy
CEA [address] scan chest reviewed no discrete primary or significant metastatic burden
Office aware he needs follow up ~ 1 week to review path and discuss Tx.
Good PS.
Impression
Impression
Widespread metastatic disease (liver, peritoneum)
Jaundice
Subjective/Objective
Subjective/Objective
Without new complaints today. Denies abdominal pain
Vital Signs:
Vital Signs
Temp Pulse Resp BP Pulse Ox
98.2 F 96 16 143/75 96
10/29/24 07:45 10/29/24 07:45 10/29/24 07:45 10/29/24 07:45 10/29/24 07:45
General: Well Developed, Well Nourished, No Apparent Distress and Comfortable
HEENT: Jaundice
Cardiology: S1 and S2
Pulmonary: Clear
GI: Soft, Distended and Hepatomegaly
Extremities: Edema +2
Neurology: Non Focal
Psych: Calm
Lab Results:
Laboratory Data
WBC 13.3 10^3/uL (4.8-10.8) H 10/29/24 08:25
Hgb 10.3 g/dL (13.0-18.0) L 10/29/24 08:25
Plt Count 303 10^3/uL (130-400) 10/29/24 08:25
PT 15.1 Sec (11.4-14.6) H 10/29/24 08:25
INR 1.14 10/29/24 08:25
APTT 28.0 Sec (23.4-35.0) 10/27/24 22:32
eGFR > 60.00 10/29/24 08:25
--- NOTE | 2024-10-29 14:21 | CM ---
financial investment manager reviewed patient's chart and met with patient and patient lives with his brother and mother in a split level home, patient is independent with adl's and ambulation, no dme, patient drives.
PCP: None
Pharmacy: [facility]
Plan; Home when stable, list of physicians in area and information on [facility] provided to patient.
--- NOTE | 2024-10-29 15:04 | W.PN.HOSP.TC ---
Today's Communication/Plan
-
Ordered MRI/MRCP
Trend LFTs
Consider biliary stent
Consider fecal diversion
Consider radiation oncology
Follow-up biopsies from sigmoidoscopy
Assessment / Plan
Assessment / Plan
#Metastatic colorectal cancer
#Bulky liver mets
#Elevated LFTs with jaundice -- AST/ALT > 3
#Obstipation from bowel obstruction
-Sigmoidoscopy on 10/29 showed ulcerated stricturing malignancy of the rectosigmoid colon; CEA 1400
-Presented as jaundice/anasarca of lower extremities, found to have significant sized liver mass
-Significantly elevated LFTs in cholestatic > hepatocellular pattern
-No known history of HBV/cirrhosis; AFP, CA 19-9, send on arrival
-LFTs uptrending with bilirubin now at 9
-GI, colorectal surgery, oncology, IR following
Plan
-Follow-up biopsies of colorectal mass
-Colorectal surgery considering fecal diversion
-Order MRI/MRCP, may need biliary stent
-Avoid hepatotoxins, trend LFTs
-Will need formal staging as OP with PET/CT
#IVC obstruction
#Bilateral lower extremity edema
-Seen on CT A/P, suspect this is tumor >thrombus causing the obstruction
-Plan to speak to IR about possible intervention
-Oncology following, as is interventional radiology
-Spoke with IR and vascular surgery, neither able to perform stenting
-May need to involve radiation oncology, will discuss with oncologist
#Irregular heart rhythm
-Noted per exam, difficult to differentiate PVCs from AF/AFL
-Does have significant systemic disease, would not be surprised if this is AF
-Ordered ECG to further assess
-May require rate control on anticoagulation
#Leukocytosis
-Likely reactive process secondary to IVC obstruction and metastatic
-Continue to trend CBC and temperature curve
DVT prophylaxis: Lovenox
Diet: Full liquids
CODE STATUS: Full code
Anticipated Discharge: > 48 hours
Subjective/Interval History
-
Date of Service: October 29, 2024
Seen and examined at the bedside. No acute events reported overnight. AFVSS this morning
LFTs worsened with bilirubin up from 5.4-9.0, uptrend to other parameters as well. Had sigmoidoscopy this morning showing ulcerated stricturing malignancy within rectosigmoid colon that GI was not able to advance scope past. Biopsies obtained.
He denies any acute complaints.
Objective Data
-
Labs:
Laboratory Results
10/29/24
08:25
WBC 13.3 H
Hgb 10.3 L
Hct 29.5 L
Plt Count 303
PT 15.1 H
INR 1.14
Sodium 134 L
Potassium 4.2
Chloride 98
Carbon Dioxide 26
BUN 20
Creatinine 0.6 L
Glucose 109 H
Calcium 8.8
Total Bilirubin 9.0 H D
AST 737 H*
ALT 178 H
Alkaline Phosphatase 785 H
Vital Signs:
Vital Signs
Temp Pulse Resp BP Pulse Ox
98.2 F 96 16 143/75 96
10/29/24 07:45 10/29/24 07:45 10/29/24 07:45 10/29/24 07:45 10/29/24 07:45
I&O
10/28/24 10/29/24 10/30/24
06:59 06:59 06:59
Intake Total 240 / 240
Balance 240 / 240
Review of Systems
-
History Source: Patient
All other systems: Reviewed and negative
Physical Exam
-
General: Well Developed, No Apparent Distress, Comfortable and Obese
HEENT: Normocephalic, Atraumatic, Moist Mucous Membranes and Other (Icteric sclera)
Respiratory: Clear to Auscultation and Non Labored Respirations
Cardiac: Regular Rhythm and S1/S2; Negative Murmur, Rub or Gallop
GI: Nontender, Normal Bowel Sounds, Distended and Organomegaly (Bulky RUQ mass)
Musculoskeletal: No Clubbing, No Cyanosis and No Edema
Skin: Warm, Dry and Jaundice
Neuro: AO x 3 and Nonfocal/Grossly Intact
Data Reviewed
-
Labs: Labs Reviewed by me, Discussed with Physician (GI, colorectal, oncology, IR) and Discussed with Patient
[2024-10-29] MEDS: MIRALAX 17 GRAMS PO (18:11)
[2024-10-29] MEDS: LOVENOX 40 MG SC (18:12)
[2024-10-29 20:31] LABS: AFP Male/Tumor Marker 1.88 ng/ml
--- NOTE | 2024-10-29 23:33 | CON.CRS ---
Consultation
-
Performing Provider: Surjit Ortega MD
Reason for Consultation: Nearly obstructing sigmoid mass
Medical History
-
History of Present Illness:
Patient is a 59-year-old male with no PMH who presents with 2 to 3 weeks of abdominal bloating/fullness and jaundice as well as 4 to 6 weeks of worsening constipation. He denied any nausea or vomiting. He has been passing flatus without issue. He
does admit to hematochezia. He used to have daily BMs, but now they are little more unreliable and can be every 1 to 3 days. He has never had a colonoscopy. In the ED, he had a WBC of 18.9, Hb 11.1, INR 1.08, CR 0.7, total bilirubin 5.8, direct
bilirubin 4.5, LFTs 688/173 and alk phos 877. A CT scan was done showing extensive metastatic disease throughout the liver, filling defect of intrahepatic IVC, periportal lymphadenopathy, intrahepatic ductal dilation, perirectal pelvic mass
possibly peritoneal metastasis versus primary colonic neoplasm. On 10/28, he underwent a CT chest showing likely benign subpleural nodules, enlarged pericardial lymph node likely neoplastic. GI was consulted and performed a flexible sigmoidoscopy on
10/29, showing a ulcerated lesion associated with severe stenosis, starting at about 10 cm from the anal verge and this was not traversed due to stool burden. Biopsies were taken. He also underwent liver biopsy by IR today.
Past Medical History
Past Medical History: None
Past Surgical History: None
Social History
Tobacco: Smoker (1 pack/week for 20 years)
Alcohol: Daily (3 beers daily)
Drug: None
Family History
Family History: Other (Mom with throat cancer, denies CRC)
Allergies / Home Medications
Allergy/AdvReac Type Severity Reaction Status Date / Time
No Known Allergies Allergy Unverified 10/27/24 20:24
�Medication �Instructions �Recorded �Confirmed �Type
acetaminophen 500 mg tablet 500 mg PO Q6HPRN PRN mild pain 10/27/24 10/28/24 History
(Tylenol Extra Strength)
ibuprofen 200 mg tablet 200 mg PO Q6HPRN PRN mild pain 10/27/24 10/28/24 History
Review of Systems
-
A 10 point review of systems was completed, and was negative except as per HPI.
Physical Exam
Vital Signs
Temp 98.8 F 10/29/24 23:27
Pulse 100 10/29/24 23:27
Resp Rate 18 10/29/24 23:27
Blood pressure 138/81 10/29/24 23:27
SaO2 97 10/29/24 23:27
10/28/24 10/29/24 10/30/24
06:59 06:59 06:59
Actual Weight 87.2 kg 90.038 kg
Body Mass Index (BMI) 30.2
Lab Results / Allergies
10/29/24 08:25
10/29/24 08:25
WBC 13.3 10^3/uL (4.8-10.8) H 10/29/24 08:25
Hgb 10.3 g/dL (13.0-18.0) L 10/29/24 08:25
Hct 29.5 % (39.0-52.0) L 10/29/24 08:25
Plt Count 303 10^3/uL (130-400) 10/29/24 08:25
Abs Immat Gran (auto) 0.1 10^3/uL (0-0.05) H 10/29/24 08:25
Neutrophils % 80.4 % (42.2-75.2) H 10/29/24 08:25
Allergy/AdvReac Type Severity Reaction Status Date / Time
No Known Allergies Allergy Unverified 10/27/24 20:24
Physical Exam
General: Well Developed, Well Nourished and No Apparent Distress
HEENT: Normocephalic and Atraumatic
Respiratory: Non Labored Respirations
GI: Soft, Non Tender and Distended (Upper abdominal distention, non-tympanitic, palpable hepatomegaly)
Skin: Warm, Dry and Jaundice
Neuro: AO x 3
Data Reviewed
-
CT Scan: Image Personally Visualized and interpreted, Report Reviewed by me, Discussed with Physician, Discussed with Patient and Discussed with Family
Assessment / Plan
-
59-year-old male with no PMH who presents with 2 to 3 weeks of abdominal bloating/fullness and jaundice as well as 4 to 6 weeks of worsening constipation, associated with hematochezia, no prior colonoscopy. No N/V and passing flatus. In the ED, he
had a WBC of 18.9, Hb 11.1, INR 1.08, CR 0.7, total bilirubin 5.8, direct bilirubin 4.5, LFTs 688/173 and alk phos 877. A CT scan was done showing extensive metastatic disease throughout the liver, filling defect of intrahepatic IVC, periportal
lymphadenopathy, intrahepatic ductal dilation, perirectal pelvic mass possibly peritoneal metastasis versus primary colonic neoplasm. On 10/28, he underwent a CT chest showing likely benign subpleural nodules, enlarged pericardial lymph node likely
neoplastic. GI was consulted and performed a flexible sigmoidoscopy on 10/29, showing a ulcerated lesion associated with severe stenosis, starting at about 10 cm from the anal verge and this was not traversed due to stool burden. Biopsies were
taken. He also underwent liver biopsy by IR today.
AFVSS
WBC 13.3, Hb 10.5, CR 0.6, direct bili 7.2 from 4.5, LFTs 737/178
� Colon mass associated with extensive metastatic liver disease, associated with rising direct bilirubin and intrahepatic ductal dilation
- Appreciate oncology
� Follow-up colonoscopy and IR biopsies; likely represents metastatic colon cancer
�CEA 1380
�No radiographic evidence of large bowel obstruction; however, unable to endoscopically traverse the rectal lesion and patient presents with worsening constipation
-Discussed concern of impending obstruction; reviewed the treatment options with regards to metastatic colon cancer; treatment of choice is chemotherapy in order to treat the metastatic spread of the disease; however, if there is concern for
obstruction, upfront surgery is recommended; in his situation, I would recommend a diverting loop colostomy; I explained the risks of colostomy, including peristomal irritation, hernia, stenosis, prolapse, as well as the possibility that this may be
a permanent stoma; I explained the risks/benefits of nonoperative management with chemotherapy, including avoiding a stoma (if chemo successful at shrinking mass), worsening obstruction requiring urgent surgery, increased risks if urgent surgery
undertaken while on chemo
-After lengthy discussion, my recommendation would be to move forward with diverting loop colostomy in order to prevent complications of complete obstruction and to get him to uninterrupted chemotherapy promptly; however, as he is not currently
completely obstructed, this is not urgent; the patient has a rising bilirubin with concern for possible biliary obstruction; due to the risk of cholangitis in this setting, I would prioritize the workup and management for this; therefore, I would
plan for diverting loop colostomy next week
� If the patient requires a port, I can place during surgery; Will discuss with oncology
� Recommend medical clearance and ostomy marking
� Continue clears
� Appreciate GI, continue daily MiraLAX
� Pain control
� Recommend DVT PPx
� Appreciate hospitalist
[2024-10-30 00:04] LABS: CA 19-9 32640 U/mL (<=35)
[2024-10-30 07:00] VITALS: BP 137/72
[2024-10-30 08:29] LABS: % Basophils 0.3 % (0-2); % Eosinophils 0.3 % (0-6); % Immature Granulocytes 1.1 % (0-0.5); % Lymphocytes 8.6 % (20.5-51.1); % Monocytes 14.8 % (1.7-9.3); % Neutrophils 74.9 % (42.2-75.2); Absolute Immature Granulocytes 0.1 10^3/uL (0-0.05); Absolute Monocytes 1.7 10^3/uL (0.1-0.6); Absolute Neutrophils 8.4 10^3/uL (1.4-6.5); Hematocrit 29.7 % (39.0-52.0); Hemoglobin 10.4 g/dL (13.0-18.0); Mean Corpuscular Hgb 33.3 pg (27.0-31.0); Mean Corpuscular Volume 95.2 fL (80.0-94.0); Mean Platelet Volume 10.5 fL (7.4-10.4); Nucleated Red Blood Cells % 0 % (-); Platelet Count 297 10^3/uL (130-400); Red Blood Cell Count 3.12 10^6/uL (4.70-6.10); Red Cell Dist. Width 15.5 % (11.5-14.5); White Blood Cell Count 11.2 10^3/uL (4.8-10.8)
[2024-10-30 08:32] LABS: INR 1.19; PT 15.4 Sec (11.4-14.6)
[2024-10-30 08:52] LABS: ALT (SGPT) 183 U/L (0-50); Albumin 3.3 g/dl (3.5-5.0); Alkaline Phosphatase 808 U/L (38-126); Blood Urea Nitrogen 24 mg/dl (9-20); Carbon Dioxide 27 mmol/L (22-30); Chloride 100 mmol/L (98-107); Direct Bilirubin 7.8 mg/dl (0.0-0.4); Estimated Creatinine Clearance 122 ml/min; Glucose 90 mg/dl (70-99); Sodium 135 mmol/L (135-145); Total Bilirubin 9.2 mg/dl (0.2-1.3); Total Protein 6.6 g/dl (6.3-8.2); eGFR > 60.00
[2024-10-30 09:13] LABS: AST (SGOT) 868 U/L (17-59)
[2024-10-30] MEDS: MIRALAX 17 GRAMS PO (09:33)
[2024-10-30 09:34] VITALS: BP 132/81
--- NOTE | 2024-10-30 09:44 | W.PN.GI.CBS2 ---
Today's Communication / Plan
-
MRI/MRCP pending. F/u flex sig and liver biopsies.
Assessment / Plan
-
59-year-old male with no known past medical history as he never sought medical care admitted with change in bowel habits, abdominal distension and lower extremity edema found to have widely metastatic cancer, likely primary colon with mets to liver
and peritoneum, biopsies pending.
10/27/24 CT Abd/pelvis W Iv Cont
Extensive metastatic disease throughout the liver. Filling defect within the intrahepatic IVC, which is likely thrombus, most likely tumor thrombus.
Periportal lymphadenopathy.
There is a mass within the pelvis, superior to the rectosigmoid junction. This most likely represents a peritoneal metastasis. Differential consideration of primary neoplasm arising from the colon extending superiorly colonic lumen. There is no
evidence for bowel obstruction or free intraperitoneal air.
Diffuse subcutaneous edema.
Thickening of the urinary bladder wall with stranding of the adjacent fat, and please correlate with any signs or symptoms that would suggest cystitis. There is a small amount of free fluid within the pelvis.
See above narrative for additional findings.
10/28/24 US LE
No sonographic evidence for lower extremity venous thrombosis.
Flexible Sigmoidoscopy 10/29/24: A malignant-appearing, ulcerated lesion with intrinsic severe stenosis measuring at least 10 cm (in length) was found in the distal rectum/recto-sigmoid colon from about 10-20cm and was non-traversed due to stool
burden.
CEA 1380
AFP 1.88
CA 19-9 [id number]
A/P:
-s/p flex sig on 10/29 with malignant appearing mass causing severe stenosis in the rectosigmoid colon, bx pending
-s/p IR Liver biopsy on 10/29, bx pending
-MRI/MRCP today to evaluate for biliary obstruction due to significantly elevated LFTs-- I suspect this is all intrahepatic cholestasis due to tumor burden in the liver, so I am not optimistic that there will be anything to intervene upon from an
endoscopic perspective to help decompress and bring his bili down. However, will await imaging results and review with Dr. Gongora
Subjective
Subjective
Date of Service: October 30, 2024
Patient seen in follow-up this morning. Overall, offers no complaints this morning. MRI/MRCP pending. AST mildly worse on todays labs, but otherwise LFTs remainly grossly unchanged.
Tbili 9 --> 9.2
Dbili 7.2 --> 7.8
AST 737 --> 868
ALT 178 --> 183
Alk phos 785 --> 808
Objective
Data Reviewed
Laboratory Data:
Laboratory Results
10/30/24 07:47
10/30/24 07:47
Laboratory Results
PT 15.4 Sec (11.4-14.6) H 10/30/24 07:47
INR 1.19 10/30/24 07:47
APTT 28.0 Sec (23.4-35.0) 10/27/24 22:32
Total Bilirubin 9.2 mg/dl (0.2-1.3) H 10/30/24 07:47
AST 868 U/L (17-59) H* 10/30/24 07:47
ALT 183 U/L (0-50) H 10/30/24 07:47
Alkaline Phosphatase 808 U/L (38-126) H 10/30/24 07:47
Lipase 93 U/L (23-300) 10/27/24 20:32
Vital Signs and I&O:
Vital Signs
Temp Pulse Resp BP Pulse Ox
98.2 F 91 16 137/72 98
10/30/24 07:00 10/30/24 07:00 10/30/24 07:00 10/30/24 07:00 10/30/24 07:00
I&O
10/29/24 10/30/24 10/31/24
06:59 06:59 06:59
Intake Total 240 / 240 900 / 900
Balance 240 / 240 900 / 900
Physical Exam
Physical Exam
HEENT: Anicteric (scleral icterus)
GI: Soft, Distended, Non Tender and Normal Bowel Sounds
Extremities: Edema
+jaundice
--- NOTE | 2024-10-30 11:28 | CM ---
Patient seen at bedside. Patient states that he is uncertain of medical plan but does not anticipate discharge needs at this time. CM will continue to follow for discharge planning needs.
Plan; home with no needs anticipated
--- NOTE | 2024-10-30 11:53 | W.PN.CRS1 ---
Today's Communication / Plan
-
follow MRI/MRCP
await biopsies
plan for diverting loop ileostomy next week, possible port
Assessment/Plan
-
59-year-old male with no PMH who presents with 2 to 3 weeks of abdominal bloating/fullness and jaundice as well as 4 to 6 weeks of worsening constipation, associated with hematochezia, no prior colonoscopy. No N/V and passing flatus. In the ED, he
had a WBC of 18.9, Hb 11.1, INR 1.08, CR 0.7, total bilirubin 5.8, direct bilirubin 4.5, LFTs 688/173 and alk phos 877. A CT scan was done showing extensive metastatic disease throughout the liver, filling defect of intrahepatic IVC, periportal
lymphadenopathy, intrahepatic ductal dilation, perirectal pelvic mass possibly peritoneal metastasis versus primary colonic neoplasm. On 10/28, he underwent a CT chest showing likely benign subpleural nodules, enlarged pericardial lymph node likely
neoplastic. GI was consulted and performed a flexible sigmoidoscopy on 10/29, showing a ulcerated lesion associated with severe stenosis, starting at about 10 cm from the anal verge and this was not traversed due to stool burden. Biopsies were
taken. He also underwent liver biopsy by IR today.
AFVSS
WBC 11.2 (13.3), Hb 10.4 (10.5), LFTs 868/183 (737/178)
� Colon mass associated with extensive metastatic liver disease, associated with rising direct bilirubin and intrahepatic ductal dilation
- Appreciate oncology
� Follow-up colonoscopy and IR biopsies; likely represents metastatic colon cancer
�CEA 1380
�No radiographic evidence of large bowel obstruction; however, unable to endoscopically traverse the rectal lesion and patient presents with worsening constipation
-Plan for diverting loop colostomy next week
� If the patient requires a port, Dr. Ortega can place during surgery
� Recommend medical clearance and ostomy marking
� Continue clears
� Appreciate GI, continue daily MiraLAX
� Pain control
� Recommend DVT PPx
� Appreciate hospitalist
- MRI/MRCP pending per GI
Subjective Data
Subjective Data
Date of Service: October 30, 2024
Patient states he has no pain. He is having liquid bowel movements. He denies nausea or vomiting.
Objective Data
-
Vital Signs
Temp Pulse Resp BP Pulse Ox
98.2 F 91 16 137/72 98
10/30/24 07:00 10/30/24 07:00 10/30/24 07:00 10/30/24 07:00 10/30/24 07:00
Intake & Output
10/29/24 10/30/24 10/31/24
06:59 06:59 06:59
Intake Total 240 / 240 900 / 900
Balance 240 / 240 900 / 900
Intake:
Oral fluids 240 / 240 900 / 900
Other:
Number of approximated MODERATE 3 2
amounts of urine
Lab Results
10/30/24 07:47
10/30/24 07:47
Physical Exam
-
General: No Acute Distress (jaundice appearing in color) and AOx3
Abdomen: Soft, Distended and Non Tender
Skin: Warm and Dry
--- NOTE | 2024-10-30 12:41 | W.PN.HOSP.TC ---
Today's Communication/Plan
-
Await response from oncology concerning XRT
Follow-up MRI/MRCP
Follow-up liver and colon pathology
Trend LFTs
Fecal diversion with colorectal surgery next week
Clear liquid diet
Assessment / Plan
Assessment / Plan
#Metastatic colorectal cancer
#Bulky liver mets
#Elevated LFTs with jaundice -- AST/ALT > 3
#Obstipation from bowel obstruction
-Sigmoidoscopy on 10/29 showed ulcerated stricturing malignancy of the rectosigmoid colon; CEA 1400
-Presented as jaundice/anasarca of lower extremities, found to have significant sized liver mass
-Significantly elevated LFTs in cholestatic > hepatocellular pattern
-No known history of HBV/cirrhosis; AFP, CA 19-9, send on arrival
-LFTs uptrending with bilirubin now at 9
-GI, colorectal surgery, oncology, IR following
Plan
-Follow-up biopsies of colorectal mass
-Colorectal surgery considering fecal diversion next week
-Follow-up MRI/MRCP, may need biliary stent
-Avoid hepatotoxins, trend LFTs
-Will need formal staging as OP with PET/CT
#IVC obstruction
#Bilateral lower extremity edema
-Seen on CT A/P, suspect this is tumor >thrombus causing the obstruction
-Plan to speak to IR about possible intervention
-Oncology following, as is interventional radiology
-Spoke with IR and vascular surgery, neither able to perform stenting
-May need to involve radiation oncology, will discuss with oncologist
#Irregular heart rhythm
-Noted per exam, difficult to differentiate PVCs from AF/AFL
-Does have significant systemic disease, would not be surprised if this is AF
-Ordered ECG to further assess
-May require rate control on anticoagulation
#Leukocytosis
-Likely reactive process secondary to IVC obstruction and metastatic
-Continue to trend CBC and temperature curve
DVT prophylaxis: Lovenox
Diet: CLD
CODE STATUS: Full code
Anticipated Discharge: > 48 hours
Subjective/Interval History
-
Date of Service: October 30, 2024
Seen and examined at bedside. No acute events overnight. AFVSS this morning
LFTs stable with bilirubin increased from 9-9.2. MRI/MRCP pending
Denies any acute complaints.
Objective Data
-
Labs:
Laboratory Results
10/30/24
07:47
WBC 11.2 H
Hgb 10.4 L
Hct 29.7 L
Plt Count 297
PT 15.4 H
INR 1.19
Sodium 135
Potassium 4.0
Chloride 100
Carbon Dioxide 27
BUN 24 H
Creatinine 0.7
Glucose 90
Calcium 9.0
Total Bilirubin 9.2 H
AST 868 H*
ALT 183 H
Alkaline Phosphatase 808 H
Vital Signs:
Vital Signs
Temp Pulse Resp BP Pulse Ox
98.2 F 91 16 137/72 98
10/30/24 07:00 10/30/24 07:00 10/30/24 07:00 10/30/24 07:00 10/30/24 07:00
I&O
10/29/24 10/30/24 10/31/24
06:59 06:59 06:59
Intake Total 240 / 240 900 / 900
Balance 240 / 240 900 / 900
Review of Systems
-
History Source: Patient
All other systems: Reviewed and negative
Physical Exam
-
General: Well Developed, No Apparent Distress, Comfortable and Obese
HEENT: Normocephalic, Atraumatic, Moist Mucous Membranes and Other (Icteric sclera)
Respiratory: Clear to Auscultation and Non Labored Respirations
Cardiac: Regular Rhythm, S1/S2 and Other (PVCs); Negative Murmur, Rub or Gallop
GI: Soft, Nontender, Nondistended and Normal Bowel Sounds
Musculoskeletal: No Clubbing, No Cyanosis and Other (3+ lower extremity edema)
Skin: Warm, Dry and Jaundice; Negative Rash
Neuro: AO x 3 and Nonfocal/Grossly Intact
Psych: Calm
Data Reviewed
-
Labs: Labs Reviewed by me, Discussed with Physician and Discussed with Patient
[2024-10-30 15:00] VITALS: BP 147/80
[2024-10-30] MEDS: LOVENOX 40 MG SC (18:19)
[2024-10-30] MEDS: ROXICODONE 5 MG PO (18:19)
[2024-10-30 19:40] VITALS: BP 144/81
--- NOTE | 2024-10-30 21:04 | W.PN.UPDATE ---
Update Note
Progress Note Update
Colon rectal mass path + moderately differentiated invasive adenocarcinoma, liver biopsy returned as metastatic adenocarcinoma.
MRI/MRCP reviewed with Dr. Gongora. Widely metastatic disease, unfortunately, not amenable to biliary decompression. Defer further treatment plans to oncology. Discussed with Dr. Virgen, agree with palliative care discussion.
GI will sign off, please call with questions.
[2024-10-30 23:19] VITALS: BP 135/79
[2024-10-31 07:00] VITALS: BP 121/79
--- NOTE | 2024-10-31 07:05 | W.PN.ONC2 ---
Addendum entered and electronically signed by Marlyn Marcum MD 10/31/24 15:24:
Long discussion today with pt regarding goals of care options.
Case d/w Dr. Ortega at length.
Discussed treatment with FOLFOX (or if MMR-d then Keytruda), vs best supportive care, vs hospice.
Would not recommend hospice at this time, particularly without confirming MMR status.
Denies family history of cancer other than mother with throat cancer (smoker).
Port placement anticipated 11/03.
I will tentatively see pt in office 11/02 pm.
With progressive increase in AST, needs to start chemo ALAN.
Our new patient schedulers will contact pt 11/02 AM.
Original Note:
Today's Communication / Plan
-
OP follow up for systemic therapy upon surgical recovery
f/u path NGS, MMR
Impression
Impression
metastatic adenocarcinoma, moderately differentiated colon cancer with mets to the liver, L adrenal, and anterior mediastinum
hepatic metastases causing intrahepatic obstruction of the left and right bile ducts no amenable to biliary decompression
severe extrinsic compression on the intrahepatic IVC which contains intraluminal tumor thrombus
ECOG 0-1
Plan
Plan
Pathology and staging reviewed with patient
Colorectal surgery considering palliative diverting colostomy next week
recommend smoking and ETOH cessation
OP medical oncology follow up upon surgical recovery for palliative systemic therapy.
f/u MMR
f/u NGS
Subjective/Objective
Subjective
no new complaints
pain improved s/p 5mg PO oxy IR last evening
using bowel regimen for constipation
Vital Signs:
Vital Signs
Temp Pulse Resp BP Pulse Ox
98.6 F 88 18 135/79 96
10/30/24 23:19 10/30/24 23:19 10/30/24 23:19 10/30/24 23:19 10/30/24 23:19
Lab Results:
Laboratory Data
WBC 11.2 10^3/uL (4.8-10.8) H 10/30/24 07:47
Hgb 10.4 g/dL (13.0-18.0) L 10/30/24 07:47
Plt Count 297 10^3/uL (130-400) 10/30/24 07:47
PT 15.4 Sec (11.4-14.6) H 10/30/24 07:47
INR 1.19 10/30/24 07:47
APTT 28.0 Sec (23.4-35.0) 10/27/24 22:32
eGFR > 60.00 10/30/24 07:47
Physical Exam
HEENT: Jaundice
Cardiology: Normal Sinus Rhythm
Pulmonary: Clear
GI: Soft
Extremities: Pulses Present; No Edema
Neuro: Non Focal
[2024-10-31 08:26] LABS: % Basophils 0.2 % (0-2); % Eosinophils 0.3 % (0-6); % Lymphocytes 10.1 % (20.5-51.1); % Monocytes 12.2 % (1.7-9.3); % Neutrophils 76.2 % (42.2-75.2); Absolute Immature Granulocytes 0.1 10^3/uL (0-0.05); Absolute Lymphocytes 1.1 10^3/uL (1.2-3.4); Absolute Monocytes 1.4 10^3/uL (0.1-0.6); Absolute Neutrophils 8.7 10^3/uL (1.4-6.5); Hematocrit 32.1 % (39.0-52.0); Mean Corp Hgb Conc. 34.3 g/dL (33.0-37.0); Mean Corpuscular Hgb 33.1 pg (27.0-31.0); Mean Corpuscular Volume 96.7 fL (80.0-94.0); Nucleated Red Blood Cells % 0 % (-); Platelet Count 288 10^3/uL (130-400); Red Blood Cell Count 3.32 10^6/uL (4.70-6.10); Red Cell Dist. Width 15.4 % (11.5-14.5); White Blood Cell Count 11.3 10^3/uL (4.8-10.8)
[2024-10-31 08:52] LABS: ALT (SGPT) 180 U/L (0-50); Albumin 3.3 g/dl (3.5-5.0); Alkaline Phosphatase 767 U/L (38-126); Blood Urea Nitrogen 23 mg/dl (9-20); Calcium 8.8 mg/dl (8.4-10.2); Carbon Dioxide 29 mmol/L (22-30); Chloride 98 mmol/L (98-107); Direct Bilirubin 7.5 mg/dl (0.0-0.4); Estimated Creatinine Clearance 122 ml/min; Glucose 99 mg/dl (70-99); Potassium 4.3 mmol/L (3.5-5.1); Sodium 134 mmol/L (135-145); Total Bilirubin 9.1 mg/dl (0.2-1.3); Total Protein 6.6 g/dl (6.3-8.2); eGFR > 60.00
[2024-10-31 09:05] LABS: AST (SGOT) 914 U/L (17-59)
[2024-10-31] MEDS: MIRALAX 17 GRAMS PO (09:20)
--- NOTE | 2024-10-31 13:22 | W.PN.HOSP.TC ---
Today's Communication/Plan
-
Plan for palliative chemotherapy as OP
MiraLAX daily and CLD at discharge
Discharge today
Assessment / Plan
Assessment / Plan
#Metastatic colorectal adenocarcinoma
#Bulky liver mets
#Elevated LFTs with jaundice -- AST/ALT > 3
#Obstipation from bowel obstruction
-Sigmoidoscopy on 10/29 showed ulcerated stricturing malignancy of the rectosigmoid colon; CEA 1400
-Presented as jaundice/anasarca of lower extremities, found to have significant sized liver mass
-Significantly elevated LFTs in cholestatic > hepatocellular pattern
-No known history of HBV/cirrhosis; AFP, CA 19-9, send on arrival
-LFTs uptrending with bilirubin now at 9
-GI, colorectal surgery, oncology, IR following
-Will pursue outpatient palliative chemotherapy, OV to be scheduled
-Not a candidate for diversion colostomy, nor biliary stent, nor IVC stent
#IVC obstruction
#Bilateral lower extremity edema
-Seen on CT A/P, suspect this is tumor >thrombus causing the obstruction
-Plan to speak to IR about possible intervention
-Oncology following, as is interventional radiology
-Spoke with IR and vascular surgery, neither able to perform stenting
-May need to involve radiation oncology, will discuss with oncologist
#Irregular heart rhythm
-Noted per exam, difficult to differentiate PVCs from AF/AFL
-Does have significant systemic disease, would not be surprised if this is AF
-Ordered ECG to further assess
-May require rate control on anticoagulation
#Leukocytosis
-Likely reactive process secondary to IVC obstruction and metastatic
-Continue to trend CBC and temperature curve
DVT prophylaxis: Lovenox
Diet: CLD
CODE STATUS: Full code
Anticipated Discharge: Today
Subjective/Interval History
-
Date of Service: October 31, 2024
Seen and examined at the bedside. No acute events reported overnight. AFVSS this morning. Family in the room and updated
No longer a candidate for diversion colostomy, no feasible options for biliary stent nor IVC stent. Not a candidate for radiation therapy. Spoke with the patient and family about options which include palliative chemotherapy versus hospice. They
have selected for palliative chemotherapy, we will see oncology in office this upcoming week. No further medical testing or initiations of therapy to be had in hospital
Objective Data
-
Labs:
Laboratory Results
10/31/24
07:46
WBC 11.3 H
Hgb 11.0 L
Hct 32.1 L
Plt Count 288
Sodium 134 L
Potassium 4.3
Chloride 98
Carbon Dioxide 29
BUN 23 H
Creatinine 0.7
Glucose 99
Calcium 8.8
Total Bilirubin 9.1 H
AST 914 H*
ALT 180 H
Alkaline Phosphatase 767 H
Vital Signs:
Vital Signs
Temp Pulse Resp BP Pulse Ox
98.4 F 93 19 121/79 99
10/31/24 07:00 10/31/24 07:00 10/31/24 07:00 10/31/24 07:00 10/31/24 07:00
I&O
10/30/24 10/31/24 11/01/24
06:59 06:59 06:59
Intake Total 900 / 900 1800 / 1800 480 / 480
Balance 900 / 900 1800 / 1800 480 / 480
Review of Systems
-
History Source: Patient
All other systems: Reviewed and negative
Physical Exam
-
General: Well Developed, No Apparent Distress, Comfortable and Obese
HEENT: Normocephalic, Atraumatic, Moist Mucous Membranes and Other (Scleral icterus)
Respiratory: Clear to Auscultation and Non Labored Respirations
Cardiac: Regular Rhythm and S1/S2; Negative Murmur, Rub or Gallop
GI: Soft, Normal Bowel Sounds, Tender and Distended
Musculoskeletal: No Clubbing, No Cyanosis, Edema, Right Lower Extrem and Edema, Left Lower Extrem
Skin: Warm, Dry and Jaundice
Neuro: AO x 3 and Nonfocal/Grossly Intact
Psych: Calm
Data Reviewed
-
Labs: Labs Reviewed by me, Discussed with Physician (Oncology) and Discussed with Patient
--- NOTE | 2024-10-31 13:36 | CM ---
Chart reviewed and patient has been cleared for discharge today, home no needs.
Plan; Home no needs.
[2024-10-31 14:00] VITALS: BP 155/85
--- NOTE | 2024-10-31 16:38 | W.DCSUMMARY ---
Discharge Summary
Discharge Data
Date of Admission: 10/28/24
Date of Discharge: 10/31/24
-
Pending Results: Yes
Additional Pending Results:
Extended molecular assessment of colon adenocarcinoma
Hospital Course
59-year-old male with no previous medical history, has not seen doctor in 20 years, that presented to the hospital with lower extremity edema, jaundice, scleral icterus. CT showed large mass of the liver that was consistent with metastatic cancer
to the liver. Was seen by GI, colorectal surgery, oncology while in the hospital. Had sigmoidoscopy performed that showed ulcerating/stricturing colorectal mass consistent with neoplasm, pathology showed adenocarcinoma in both colon and liver.
MRI/MRA showed extensive liver metastasis with biliary obstructions not amenable to stent placement, extensive tumor with IVC thrombus causing obstruction, metastatic lesions in adrenal glands. Discussions were had for biliary stent and IVC stent
versus radiation however due to extensive nature of disease was not amenable to any of these interventions. Goals of care discussion was had with the patient and family. Options of palliative chemotherapy versus hospice were discussed. Him and
his family have decided to pursue palliative chemotherapy. He was scheduled with an outpatient office visit for oncology week after discharge. Was recommended clear liquid diet at discharge due to obstipation, as well as MiraLAX daily. Colorectal
surgery did not think fecal diversion procedure would be beneficial
Discharge Plan
-
Patient Disposition: Home (Routine Discharge)
Discharge Diagnosis/Procedures: Metastatic colon cancer
Biliary obstruction from liver mets
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
Colon obstruction from primary cancer
Condition: Serious
Additional Diets: Clear liquid diet
Activity: As tolerated
Driving Restrictions: Not until seen by your Dr
Bathing Restrictions: None
Blood Work: None
Others Tests: None
Activity Restrictions/Additional Instructions:
Follow-up appointment with oncologist provided. He will be seen in their office the week of 11/02-11/06. If you do not hear from their office by afternoon on Saturday, contact their office (referral provided below) to schedule appointment
Instructions: Clear liquid diet
Referrals:
Avelino Huntley MD, Resident [Family Practice Resident Year2] -
NONE,* [Family Provider] -
Trent Pardo MD [Active] - (call to schedule follow up in 1 week to discuss pathology from biopsy)
Additional Discharge Medication Instructions: Start MiraLAX 4 g daily to prevent worsening blockage of your bowel. If you develop consistent watery diarrhea then speak to your doctors about switching MiraLAX to Colace twice daily
Use oxycodone 5 mg as needed for pain
Use Zofran 4 mg as needed for nausea
Use lorazepam 1 mg as needed for anxiety
Prescriptions:
New
oxycodone 5 mg Tablet
5 mg PO Q4HPRN PRN (Reason: moderate pain) 5 Days Qty: 20 0RF
ondansetron HCl 4 mg tablet
4 mg PO Q4HPRN PRN (Reason: nausea and vomiting) 5 Days Qty: 30 0RF
lorazepam 1 mg tablet
1 mg PO BID PRN (Reason: anxiety) 7 Days Qty: 14 0RF
polyethylene glycol 3350 [Miralax] 17 gram/dose powder
4 g PO DAILY 30 Days Qty: 120 0RF
Continued
ibuprofen 200 mg Tablet
200 mg PO Q6HPRN PRN (Reason: mild pain)
Discontinued
acetaminophen [Tylenol Extra Strength] 500 mg Tablet
500 mg PO Q6HPRN PRN (Reason: mild pain)
Discharge Orders:
Discharge Patient (As Directed); Ordered 10/31/24
Ordered By: Vijay Virgen
Discharge Date and Time
Discharge Date/Time: 10/31/24 14:30
Print Language: COLOMBIAN
== END 2024-10-31 14:30 | disposition home or self-care (01) | DRG 374 ==
LOC: 4 WEST ACU 01:15
PROVIDERS: Clinical Nurse Specialist Family Health; Emergency Medicine; Nurse Practitioner Adult Health; Radiology Vascular & Interventional Radiology; ADMITTING PHYSICIAN Internal Medicine; ATTENDING PHYSICIAN Internal Medicine; CONSULT PHYSICIAN Internal Medicine Gastroenterology; EMERGENCY PHYSICIAN Emergency Medicine; OTHER PHYSICIAN Internal Medicine Hematology & Oncology; OTHER PHYSICIAN Surgery
PROC: 0DBN8ZX Excision of Sigmoid Colon, Via Natural or Artificial Opening Endoscopic, Diagnostic (ICD-10-PCS; 2024-10-29)
PROC: 0FB03ZX Excision of Liver, Percutaneous Approach, Diagnostic (ICD-10-PCS; 2024-10-29)
DX: C18.9 Malignant neoplasm of colon, unspecified (principal); K83.1 Obstruction of bile duct; C78.6 Secondary malignant neoplasm of retroperitoneum and peritoneum; C78.7 Secondary malignant neoplasm of liver and intrahepatic bile duct
CPT/HCPCS: 88305; 88307; 47000; 71260; 74177; 74183; 76942; 80048; 80053; 82105; 82140; 82248; 82378; 83605; 83690; 83880; 85025; 85027; 85610; 85730; 86301; 88333; 88341; 88342; 93005; 93970; 97161; 97165; 99152; 99406; A9581; Q9967

== ENCOUNTER 2024-11-03 06:56 | Day surgery (SDC) | payer OTHER, SELFPAY ==
[2024-11-03] VITALS (7 sets, daily range): BP systolic 128–147; BP diastolic 71–99; BMI 30.4
[2024-11-03] MEDS: NORMOSOL-R/PLASMALYTE-A 1000 IV (13:55)
[2024-11-03] MEDS: CELEBREX 200 MG PO (14:05)
--- NOTE | 2024-11-03 16:59 | W.IMMPOSTOP ---
Surgical Immed Post Op Note
-
Primary Surgeon: Surjit Ortega MD
Assisting Surgeon: None
Pre-op Diagnosis: Metastatic colon cancer
Post-op Diagnosis: Metastatic colon cancer
Procedure Performed: Ultrasound-guided left subclavian Mediport insertion
Anesthesia Type: Sedation with local
Specimen / Cultures: None
Estimated Blood Loss: 10 mL
Complications: None
Operative Findings: Per op note
--- NOTE | 2024-11-03 17:04 | OR.RPT ---
Operative Report
Operative Report
DATE OF OPERATION: 11/03/2024
SURGEON: Surjit Ortega MD
PREOPERATIVE DIAGNOSIS: Metastatic colon cancer
POSTOPERATIVE DIAGNOSIS: Metastatic colon cancer
OPERATION: Left ultrasound-guided subclavian Mediport insertion
ASSISTANTS:
1. None
ANESTHESIA: Sedation with local
ESTIMATED BLOOD LOSS: 10 mL
FINDINGS:
1. After placement, the tip of port catheter visualized at level of the cavoatrial junction on fluoroscopy
2. Once sutured in position, port tested with Vicente needle and there was good withdrawal of blood and instillation of heparinized saline without resistance
SPECIMENS: None
DRAINS: None
COMPLICATIONS: No immediate complications.
INDICATIONS: The patient is a 59-year-old male with stage 4 colon cancer. Infusional chemotherapy was recommended. Therefore, I recommended port placement. The operation was discussed with the patient in detail including risks and benefits. Risks
discussed included, but are not limited to, bleeding, infection, pneumothorax, post-operative malposition or movement of catheter, need for second surgery, DVT/PE, and anesthetic risks. The patient understood and agreed to proceed. The consent was
signed and placed in the chart.
PROCEDURE: Patient was taken to the operating room and placed on the operating table in supine position. Sequential compression devices were placed bilaterally. Sedation was commenced without complication. Bilateral arms were tucked and the head
was tilted toward the right. The left neck and chest wall area were prepped and draped in a sterile fashion. A time-out was then performed verifying the correct patient, procedure, operative site, positioning, and special equipment.
The patient was placed in Trendelenburg position. Local anesthetic consisting of 1% lidocaine with epinephrine was used to numb the skin and soft tissue near the angle of the left clavicle. Using the ultrasound, I identified the left subclavian
vein, which was easily compressible, the subclavian artery, which was pulsatile, and the lining of the lung cavity. I slowly advanced the tip of the needle with 10 mL syringe under ultrasound guidance while simultaneously aspirating and entered the
subclavian vein under direct visualization. On the first pass, good venous return was noted indicating that I had accessed the left subclavian vein. Under fluoroscopic guidance, a guidewire was passed through the needle into the patient down to the
superior vena cava. This went smoothly.
The needle was removed over the guidewire and a skin opening was enlarged with an 11 blade scalpel. Next, I advanced the dilator and peel-away sheath together over the guidewire into the patient. This went smoothly as well. Next, the guidewire and
inner dilator were removed leaving the outer sheath in place. I advanced the white tubing through the outer sheath into the patient under fluoroscopic guidance to the superior vena cava near the right atrium. Next, the outer sheath was peeled away
while maintaining the white tubing in place. The location of the catheter tip was confirmed on fluoroscopy.
Using a 15 blade scalpel, I made a 3cm incision over the chest wall. A subcutaneous pocket was created inferiorly to the incision with a combination of Bovie electrocautery and blunt dissection. There was good hemostasis. The white tubing was
connected to the tunneling device and brought through a newly created tunnel to the pocket area, taking care to avoid kinking of the tube. I confirmed with fluoroscopy that the tip was still at the cavoatrial junction after this manipulation. The
white tubing was trimmed, connected to the the port reservoir and secured with the locking mechanism. The port reservoir was accessed with good venous return and flushed with heparinized saline. One last round of fluoroscopy was performed. The tip
of the white tubing was at the level of the cavoatrial junction and there was no kink in the tubing.
The reservoir was secured to the chest wall with two 3-0 Prolene stitches. The port was accessed once more with the Vicente needle and heparinized saline. The port withdrew promptly and flushed easily. The subcutaneous layer was closed with deep
dermal interrupted 3-0 Vicryl and the skin was closed with a running subcuticular 4-0 Vicryl. The remaining local was injected around the subcutaneous pocket, port incision and stab incision. Dermabond was used to dress the port incision and stab
incision.
At this point, the procedure was complete. All sponge, needle and instrument counts were correct. The patient tolerated the procedure well and was transferred to the recovery room in stable condition. A portable chest x-ray was ordered in recovery
to confirm port position and rule-out pneumothorax.
DICTATED BY: Surjit Ortega MD
== END 2024-11-03 18:20 | disposition home or self-care (01) ==
LOC: SDS 06:56
PROVIDERS: ATTENDING PHYSICIAN Surgery
PROC: 02HV33Z Insertion of Infusion Device into Superior Vena Cava, Percutaneous Approach (ICD-10-PCS; 2024-11-03)
PROC: 0JH63WZ Insertion of Totally Implantable Vascular Access Device into Chest Subcutaneous Tissue and Fascia, Percutaneous Approach (ICD-10-PCS; 2024-11-03)
DX: C18.9 Malignant neoplasm of colon, unspecified (principal); C79.9 Secondary malignant neoplasm of unspecified site
CPT/HCPCS: 36561; 71045; 76000; C1788

== ENCOUNTER → 2024-11-10 08:44 | Outpatient (REF) | payer OTHER, SELFPAY | LOC: MRI 3T 08:44 | PROVIDERS: ATTENDING PHYSICIAN Surgery; FAMILY PHYSICIAN Physician Assistant | DX: C20 Malignant neoplasm of rectum (principal) | CPT/HCPCS: 72197; A9575 ==

== ENCOUNTER → 2025-01-22 14:13 | Outpatient (REF) | payer OTHER, SELFPAY | LOC: RAD 14:13 | PROVIDERS: ATTENDING PHYSICIAN Internal Medicine Hematology & Oncology; FAMILY PHYSICIAN Physician Assistant; OTHER PHYSICIAN Nurse Practitioner Primary Care | DX: C18.7 Malignant neoplasm of sigmoid colon (principal) | CPT/HCPCS: 71260; 74177; Q9967 ==

== ENCOUNTER → 2025-05-07 14:20 | Outpatient (REF) | payer OTHER, SELFPAY | LOC: RAD 14:20 | PROVIDERS: ATTENDING PHYSICIAN Internal Medicine Hematology & Oncology; FAMILY PHYSICIAN Physician Assistant | DX: C18.7 Malignant neoplasm of sigmoid colon (principal) | CPT/HCPCS: 71260; 74177; Q9967 ==

== ENCOUNTER → 2025-08-13 14:00 | Outpatient (REF) | payer OTHER, SELFPAY | LOC: RAD 14:00 | PROVIDERS: ATTENDING PHYSICIAN Internal Medicine Hematology & Oncology; FAMILY PHYSICIAN Physician Assistant | DX: C18.7 Malignant neoplasm of sigmoid colon (principal) | CPT/HCPCS: 71260; 74177; Q9967 ==

== ENCOUNTER → 2025-09-14 07:42 | Outpatient (REF) | payer OTHER, SELFPAY | LOC: MRI 3T 07:42 | PROVIDERS: ATTENDING PHYSICIAN Nurse Practitioner Adult Health; FAMILY PHYSICIAN Physician Assistant | DX: C18.7 Malignant neoplasm of sigmoid colon (principal) | CPT/HCPCS: 74183; A9575 ==